=== PATIENT | male | born 1960 | race Caucasian/White ===

== ENCOUNTER 2024-07-20 07:12 | Inpatient (IN) | payer MEDICAID, SELFPAY ==
[2024-07-20] VITALS (10 sets, daily range): BP systolic 91–120; BP diastolic 62–87; PULSE 90–117; RESP 13–21; TEMP 36.4–37; O2SAT 95–99; BMI 19.8; BMI 17.6
--- NOTE | 2024-07-20 07:30 | CT_ITS ---
FINAL REPORT TECHNIQUE: After the administration of oral and intravenous contrast, axial images were obtained through the abdomen and pelvis by computed tomography. The study was performed with techniques to keep radiation dose as low as reasonably achievable, (ALARA). Individual dose reduction techniques using automated exposure control or adjustment of mA and/or kV according to the patient's size were employed. CLINICAL HISTORY: tunneling rectal wound FINDINGS: Abdomen: There is a low-attenuation lesion in the left lower the liver measuring 1.5 cm in diameter. This is highly concerning for metastasis. A 3.0 cm lesion in the spleen seen on image 38 of series 4 is also concerning for metastasis. A low-attenuation in the mid body of the pancreas is indeterminate and measures 1.2 cm. The adrenal glands and kidneys are unremarkable. There are multiple abnormally enlarged upper abdominal lymph nodes measuring up to 4 cm in craniocaudal dimension. These are along the right side of the upper abdominal aorta and are concerning for metastatic adenopathy. Pelvis: There is a mass in the inferior rectum and anal region measuring up to 4.4 x 3.5 cm in AP and transverse dimension. This mass appears to extend to the anal verge. The appendix is not identified. The urinary bladder is unremarkable. Iliac lymph nodes measure up to 1.7 cm and are concerning for metastatic adenopathy. A large destructive mass is seen within the left iliac wing measuring 6.0 x 4.6 cm. This is highly concerning for osseous metastasis. IMPRESSION: 1. Masses in the liver and spleen are highly concerning for metastases. 2. Extensive upper abdominal and iliac adenopathy concerning for metastatic adenopathy. 3. Large osseous lesion in the left iliac wing concerning for osseous metastasis. 4. Unusual mass in the inferior rectum extending to the anal verge. A primary neoplasm cannot be excluded. 5. PET/CT is recommended for further evaluation. Reviewed, Interpreted and Dictated by Fer Rios MD Transcribed by Tamera Lee Authenticated and [facility]
--- NOTE | 2024-07-20 07:30 | CT_ITS ---
FINAL REPORT TECHNIQUE: The patient was injected with IV contrast. Axial images were obtained through the chest in a PE protocol. 3-D reconstruction images were also performed. Individualized dose reduction techniques using automated exposure control or adjustment of the MA and/or KV according to patient's size were employed. CLINICAL HISTORY: cough, tachy FINDINGS: Mediastinal vasculature is adequately opacified. No pulmonary artery filling defects are identified to suggest PE. There is no aortic dissection. There is extensive mediastinal adenopathy. A superior right paratracheal node measures up to 2.2 cm. An inferior right paratracheal node measures up to 3.2 cm. There is confluent subcarinal and right hilar adenopathy. This confluent mass measures 7.5 x 3.5 cm in transverse and AP dimension. This mass is partially surrounded by the bronchus intermedius. There is a dominant mass in the right lower lobe measuring 5.0 x 5.0 cm in maximum AP and transverse dimension. There is a multitude of small noncalcified nodules throughout both lungs which is highly concerning for metastasis. A destructive lesion in the right sixth rib measures 2.3 cm in greatest dimension and is probably related to metastasis. Destructive lesions in the left lateral seventh, eighth, and ninth ribs may be related to traumatic or pathologic fractures. IMPRESSION: No pulmonary embolus or dissection. Extensive mediastinal adenopathy with a dominant mass in the superior segment of the right lower lobe of the lung. There is a multitude of bilateral pulmonary nodules as well as destructive rib lesions. Findings are highly concerning for bronchogenic carcinoma. Small cell lung cancer is favored. PET/CT and tissue sampling are recommended. Reviewed, Interpreted and Dictated by Fer Rios MD Transcribed by Tamera Lee Authenticated and [facility]
--- NOTE | 2024-07-20 07:32 | HMH.EDGENADL ---
Discharge Plan Disposition Chief Complaint: Wound/Laceration Prescriptions Prescriptions: No Action No Known Home Medications Referrals Follow up/Referrals: Provider,Referral, MD [Referring] - See instructions Clinical Impressions Clinical Impression: Metastatic disease, Wound with tunneling, Creatinine elevation, Elevated troponin Print Language Print Language: Panamanian Discharge ED Provider: Ryan Riley General Adult HPI General Chief complaint: Wound/Laceration Stated complaint: Back Pain Time Seen by Provider: 07/20/24 07:17 Mode of Arrival: EMS Source of Information: EMS Description of Symptoms (Recalled from ER Triage Doc. by RN): Per EMS patient lives by himself and is unable to take care of himself. Patient states he has no complaints but that the EMS crew has been to his house multiple times for well checks and this time they brought him to the hospital. Patient with multiple bleeding bed sores on his buttocks. History of Present Illness HPI narrative: Patient is a 64-year-old male with no reported chronic comorbidities, daily smoker who presents emergency department for evaluation of back pain. Patient called 911 for left paraspinal back pain that has been going on for about a week, there is been associated cough that is worse than his baseline. He has had acute functional decline. History per EMS house is dilapidated and the worst living conditions they have seen a long time . Patient has been unable to get out of his chair for the last 24 hours although normally he has a ambulatory baseline. Allergic to penicillins but does not know what happens. He also has multiple bleeding sores on his bottom. No other acute complaints at this time. Please note that above description of symptoms, in this electronic medical record under categorization of recalled from ER triage doctor by RN are reflective of an initial nursing assessment, however, is not reflective of my full history and physical exam that was personally taken and clarified. Consequentially, this preceding description of symptoms, which may include the patient's categorized chief complaint in the EMR, do not reflect my personal clinical impression, and the ultimate description of history of present illness and patient stated complaints should be deferred to this section of the note. Unless stated otherwise or congruent with this section of the note, additional signs, symptoms, or incongruence should be interpreted as inaccurate with my clinical impression. Related Data Home Medications ?Medication ?Instructions ?Recorded ?Confirmed No Known Home Medications 07/20/24 07/20/24 Allergies Allergy/AdvReac Type Severity Reaction Status Date / Time Penicillins Allergy Unknown Verified 07/20/24 07:26 allergy reaction [facility] Disclaimer: The information contained in this section may have been updated after the patient was seen, as this information can be updated by other users. Social History Smoking Status: Current every day smoker alcohol intake: former current occupational status: other Travel in the last 8 weeks: None ROS Obtained: Yes Systems reviewed as appropriate & no additional complaints except as documented Physical Exam General General appearance: alert, in no apparent distress and cachectic Head Head exam: atraumatic and normocephalic Eye Eye exam: Present PERRL and EOMI ENT ENT exam: Present mucous membranes moist Neck Neck exam: Present normal inspection Chest Chest inspection: Present normal inspection and symmetric chest wall rise Respiratory Respiratory exam: Present normal lung sounds bilaterally; Absent respiratory distress Cardiovascular Cardiovascular exam: Present regular rate and normal rhythm Abdominal Exam Abdominal exam: Present soft; Absent tenderness exam: Present other (Russian Language Professor present, deep tunneling wound into the rectum that is oozing blood.) Extremities Exam Extremities exam: Present normal inspection Back Exam Back exam: Present tenderness (Left paraspinal) Neurological Exam Neurological exam: Present alert, oriented X3 and CN II-XII intact Psychiatric Psychiatric exam: Present normal affect Skin Skin exam: Present warm and dry Medical Decision Making Medical Records Screening: Per USPSTF and CDC recommendations, given the prevalence of disease in our region, it is our hospital?s policy to screen for HIV and viral Hepatitis for all patients aged 18 and over and those with ongoing risk factors. Michele Inquiry Pt receiving controlled substance: No Vital Signs: 07/20/24 07:20 07/20/24 07:30 07/20/24 08:21 Temperature 98.4 F Temperature Source Oral Pulse Rate 116 H Pulse Rate [Radial] 117 H Respiratory Rate 18 21 Blood Pressure 101/71 L 120/87 Blood Pressure [Right Arm] 96/72 L Blood Pressure Mean 76 98 Blood Pressure Mean [Right Arm] 80 Blood Pressure Source [Right Arm] Automatic Cuff Blood Pressure Position [Right Arm] Sitting 02 Sat by Pulse Oximetry 99 97 Oxygen Delivery Method Room Air 07/20/24 08:30 Temperature Temperature Source Pulse Rate Pulse Rate [Radial] Respiratory Rate 21 Blood Pressure 116/80 Blood Pressure [Right Arm] Blood Pressure Mean 92 Blood Pressure Mean [Right Arm] Blood Pressure Source [Right Arm] Blood Pressure Position [Right Arm] 02 Sat by Pulse Oximetry Oxygen Delivery Method Lab Data Lab Results 07/20/24 07:38: WBC 15.1 H, RBC 5.10, Hgb 12.1 L, Hct 36.1 L, MCV 70.8 L, MCH 23.7 L, MCHC 33.5, RDW 20.3 H, Plt Count 290, MPV 9.7, Neut % (Auto) 88.4 H, Lymph % (Auto) 5.9 L, [place] % (Auto) 3.8, Eos % (Auto) 0.1, Baso % (Auto) 0.3, Neut # (Auto) 13.4 H, Lymph # (Auto) 0.9, [place] # (Auto) 0.6, Eos # (Auto) 0.0, Baso # (Auto) 0.1, Total Counted 100, Neutrophils % (Manual) 89 H, Lymphocytes % (Manual) 9 L, Monocytes % (Manual) 2, Platelet Estimate Normal, Hypochromasia 1+, Microcytosis 2+, Target Cells 1+, VBG pH 7.46 H, VBG pCO2 28.5 L, VBG pO2 84.1 H, VBG HCO3 19.9 L, VBG Total CO2 20.8 L, VBG O2 Saturation 96.1 H, VBG Base Excess -3.9 L, VBG Lactic Acid 1.5, Sodium 134 L, Potassium 3.2 L, Chloride 103, Carbon Dioxide 18 L, Anion Gap 16.2 H, BUN 65 H, Creatinine 2.60 H, Estimated Creat Clear 28, Estimated GFR 25 L, Est GFR ( Amer) 30 L, Glucose 122 H, Calcium 10.0, Total Bilirubin 1.1, AST 30, ALT 20, Alkaline Phosphatase 105, Troponin I 0.05 H, Total Protein 7.7, Albumin 3.6, Globulin 4.1 H, Albumin/Globulin Ratio 0.9 L 07/20/24 08:30: SARS-CoV-2 (PCR) Not detected, Influenza A Untype (PCR) Not detected, Influenza Type B (PCR) Not detected 07/20/24 11:04: Magnesium 1.6, Troponin I 0.05 H 07/20/24 07:38 07/20/24 07:38 Orders (Tests/Meds): ED MEDICATIONS Generic Name Dose Route Start Last Admin Trade Name Freq PRN Reason Stop Dose Admin Potassium Chloride/Water 100 mls @ 50 mls/hr 07/20/24 10:47 07/20/24 12:04 Potassium Chloride 20meq/100ml Ivpb IV 07/20/24 14:46 50 mls/hr Q2H CEM Administration Discontinued Medications Generic Name Dose Route Start Last Admin Trade Name Mckenna PRN Reason Stop Dose Admin Acetaminophen 1,000 mg 07/20/24 08:26 07/20/24 08:55 Acetaminophen 1,000mg/100ml Vial IV 07/20/24 08:27 1,000 mg ONCE ONE Administration Cefepime HCl 2 gm/ Sodium 100 mls @ 200 mls/hr 07/20/24 07:32 07/20/24 09:42 Chloride IV 07/20/24 08:01 200 mls/hr ONCE ONE Administration Metronidazole 500 mg in 100 mls @ 100 mls/hr 07/20/24 07:30 07/20/24 09:30 Flagyl 500mg/100ml Ivpb IV 07/20/24 08:29 100 mls/hr ONCE ONE Administration Lactated Ringer's 2,400 mls @ 1,200 mls/hr 07/20/24 07:37 07/20/24 07:50 Lactated Ringer's 1000 Ml Bag 30 ml/kg infuse over 2 hr (2400 ml) 07/20/24 09:36 1,200 mls/hr IV Administration .Q2H ONE Vancomycin/PEG/NADA/Lysine/Water 1.25 gm in 250 mls @ 125 mls/hr 07/20/24 10:00 07/20/24 09:51 Vancomycin 1.25gm/250ml (Peg) Premix IV 07/20/24 11:59 125 mls/hr ONCE ONE Administration Iopamidol 70 ml 07/20/24 09:37 07/20/24 09:39 Iopamidol-370 (76%);100ml Bottle IV 07/20/24 09:38 70 ml ONCE ONE Administration Miscellaneous 1 each 07/20/24 09:45 07/20/24 10:02 Vancomycin Consult Request NOTAPPLIC 08/19/24 09:44 Not Given [facility]ULT [facility] Morphine Sulfate 4 mg 07/20/24 08:26 07/20/24 08:55 Morphine 4mg/Ml Syringe IV 07/20/24 08:27 4 mg ONCE ONE Administration Sodium Chloride 10 ml 07/20/24 09:37 07/20/24 09:39 Sodium Chloride 0.9% 10ml Syr (Rad Only) IV 07/20/24 09:38 10 ml ONCE ONE Administration Sodium Chloride 50 ml 07/20/24 09:37 07/20/24 09:39 0.9 % Sodium Chloride 50 Ml Vial IV 07/20/24 09:38 50 ml ONCE ONE Administration ORDERS Category Date Time Status CT abdomen pelvis w con Stat Cat Scan 07/20/24 07:[address] angio chest PE protocol Stat Cat Scan 07/20/24 07:30 Completed CBC w/Auto Diff [Complete Blood Count Auto Diff] Stat Lab 07/20/24 07:38 Completed CMP [Comprehensive Metabolic Panel] Stat Lab 07/20/24 07:38 Completed MG [Magnesium] Stat Lab 07/20/24 11:04 Completed Rapid PCR Covid and Flu A/B Stat Lab 07/20/24 08:30 Completed Trop I [Troponin I] Stat Lab 07/20/24 07:38 Completed Troponin I Q3H Lab 07/20/24 11:04 Completed Troponin I Q3H Lab 07/20/24 13:45 Ordered Blood Culture Stat Micro 07/20/24 07:30 Received VBG [Venous Blood Gas] Stat RT 07/20/24 07:38 Completed EKG Request [ECG Request] Stat Y 07/20/24 07:36 Ordered ECG Data Tracing #1: Independently inter by me rate is 108, rhythm is regular, sinus tachycardia with intermittent PVCs. QTc 399 Medical Decision Narrative: In summary patient is a 64-year-old male with past medical history described above presents emergency department for multiple complaints. Patient is hemodynamically stable upon arrival, tachycardic and cachectic. Patient has tenderness over his left paraspinal area however I am much more concerned for the tunneling wound going into his rectum. He does not know how long it has been there. He also has acute functional decline. Differential includes chronic wound, tunnel infection, among others. With the specter of his back pain it could be lumbar go, kidney mass, urinary tract infection, among others. No chest pain reported although he does have significant cough and tachycardia. Broad workup will be conducted with hematologic labs, EKG, CT PE protocol, CT abdomen and pelvis with IV contrast. Initial inventions include sepsis crystalloid bolus, cefepime and metronidazole given his unknown allergy to penicillins. Pain control will be attempted with morphine and Ofirmev. CT imaging informally interpreted by me, opacities in the lungs and abnormal imaging in the pelvis adjacent to his wounds. Formal read masses in the liver and spleen concerning for metastasis extensive intra-abdominal adenopathy and osseous lesion of the iliac wing on the left, unusual mass in the inferior rectum extending to the anal verge, no pulmonary embolism or dissection, extensive mediastinal adenopathy with dominant mass in the superior segment of the right lower lobe the lung bilateral pulmonary nodules and destructive liver lesions concerning for bronchogenic carcinoma. I suspect taking all of this in totality that patient's prognosis is exceptionally poor although I do not have any definitive knowledge of possible treatments or palliation. Extensive discussion was had over the patient's goals at bedside and he does not want to be transferred to higher level of care and does not want to have ongoing treatment however he does want to be comfortable. He is interested in hospice. I think that this is reasonable plan and in the patient's best interest. Specifically he also does not want to be resuscitated with CPR or have a breathing tube placed in, he understands the consequences of this and has capacity to make this decision. Case was discussed with hospital medicine regarding management they will admit the patient their service for continued evaluation at this time. Critical Care Critical Care Time Critical Care Time: Yes Attestation: On 07/20/24, the high probability of a clinically significant, sudden or life threatening deterioration of the following system(s) required my full and direct attention, intervention and personal management. The time I documented below is in addition to time spent performing reported procedures but includes the following listed in this critical care notation. Total Time Total Critical Care Time: 45
--- NOTE | 2024-07-20 07:36 | ECG_ITS ---
APPROVED REPORT Exam: Resting ECG HR:108 bpm ECG Measurements Heart Rate 108 AXES GA 161 P 78 QRSd 86 QRS 91 QT 336 T 71 QTc 399 Conclusion SINUS TACHYCARDIA WITH FREQUENT VENTRICULAR PREMATURE COMPLEXES BORDERLINE RIGHT AXIS DEVIATION [QRS AXIS > 90] ABNORMAL RHYTHM ECG Electronically signed by : DELIO MCKEON, 07/20/2024 13:30:14
[2024-07-20 07:46] LABS: Basophils # 0.1 K/mm3 (0-0.2); Basophils % 0.3 % (0.1-2.0); Eosinophils % 0.1 % (0.1-12.0); Hematocrit 36.1 % (42.0-52.0); Hemoglobin 12.1 g/dL (14.1-18.0); Lymphocytes # 0.9 K/mm3 (0.7-4.5); Lymphocytes % 5.9 % (10-50); Mean Corpuscular HGB Conc 33.5 g/dL (31.8-35.4); Mean Corpuscular Hemoglobin 23.7 pg (27.0-31.2); Mean Corpuscular Volume 70.8 fl (80-94); Mean Platelet Volume 9.7 fl (7.4-10.4); Monocytes # 0.6 K/mm3 (0.1-1.0); Monocytes % 3.8 % (1.7-9.3); Neutrophils # 13.4 K/mm3 (1.8-7.8); Neutrophils % 88.4 % (37.0-80.0); Platelet Count 290 K/mm3 (142-424); Red Cell Distribution Width 20.3 % (11.5-17.5); White Blood Count 15.1 K/mm3 (4.8-10.8)
[2024-07-20 07:48] LABS: Lactate Venous 1.5 mmol/L (0.4-2.0); MANUAL DIFFERENTIAL MANUAL DIFFERENTIAL (MANUAL DIFF); VBG Base Excess -3.9 mmol/L (-2.4-2.3); VBG HCO3 19.9 mmol/L (23-30); VBG Oxygen Saturation 96.1 % (50-70); VBG PCO2 28.5 mmol/L (35-51); VBG PH 7.46 mmol/L (7.31-7.41); VBG PO2 84.1 mmol/L (28-40); VBG Total CO2 20.8 mmol/L (23-27)
[2024-07-20] MEDS: LACTATED RINGERS 1000ML 2,400 ML 1200 ML IV (07:50)
[2024-07-20 08:21] LABS: Hypochromasia 1+; Lymphocytes % 9 % (10-50); Monocytes % 2 % (2-9); Neutrophils % 89 % (42-76); Platelet Estimate Normal; Target Cells 1+; Total Cells Counted 100
[2024-07-20 08:22] LABS: Microcytosis 2+
--- NOTE | 2024-07-20 08:27 | PC.NURSE ---
EKG was delayed due to having to clean up the pt.
[2024-07-20 08:36] LABS: Coronavirus 19, PCR Not Detected (NotDetected); Influenza A, PCR Not Detected (NotDetected); Influenza B, PCR Not Detected (NotDetected)
[2024-07-20] MEDS: MORPHINE 4MG/ML SYRINGE 4 MG IV (08:55)
[2024-07-20] MEDS: ACETAMINOPHEN 1,000MG/100ML VIAL 1000 MG IV (08:55)
--- NOTE | 2024-07-20 09:11 | PC.NURSE ---
I notified lab that the pt is ready for his scans.
--- NOTE | 2024-07-20 09:11 | PC.NURSE ---
pt was an extremely hard stick. multiple nurses attempted to acquire blood work for the second set of blood cultures.
--- NOTE | 2024-07-20 09:13 | PC.WOUNDNOTE ---
pt taken to CT
--- NOTE | 2024-07-20 09:29 | PC.NURSE ---
patient back in room at this time.
[2024-07-20] MEDS: METRONIDAZ/SOD CHL 500 MG/100 ML PIGGYBACK 100 MG IV ×2 (09:30→19:00)
--- NOTE | 2024-07-20 09:31 | PC.NURSE ---
I rounded on the pt. no new complaints at this time. no needs voiced. call huddleston in reach.
[2024-07-20] MEDS: IOPAMIDOL-370 (76%);100ML BOTTLE 70 ML IV (09:39)
[2024-07-20] MEDS: SODIUM CHLORIDE 0.9% 10ML SYR (RAD ONLY) 10 ML IV (09:39)
[2024-07-20] MEDS: 0.9 % SODIUM CHLORIDE 50 ML VIAL IV (09:39)
[2024-07-20] MEDS: CEFEPIME HCL 2 GM in 0.9 % SODIUM CHLORIDE 100 ML IV (09:42)
[2024-07-20] MEDS: VANCOMYCIN/WATER FOR INJ (PEG) 1.25 GM/250 ML PIGGYBACK IV (09:51)
--- NOTE | 2024-07-20 10:19 | PC.NURSE ---
Called lab to check on the CMP/Lipase results that were collected at 0738, S/w Otto and he stated the analyzer didn't pick it up and they are re-running it. Give it [address] Riley notified of this delay.
[2024-07-20 10:27] LABS: Alanine Aminotransferase 20 U/L (12-78); Albumin Level 3.6 g/dl (3.5-5.0); Albumin/Globulin Ratio 0.9 (1.1-1.8); Alkaline Phosphatase 105 U/L (38-126); Anion Gap 16.2 mEq/L (5-15); Aspartate Amino Transferase 30 U/L (17-59); Bilirubin,Total 1.1 mg/dl (0.2-1.3); Blood Urea Nitrogen 65 mg/dl (9-20); Carbon Dioxide 18 mmol/L (22.0-30.0); Chloride 103 mmol/L (98-107); Creatinine Clearance Estimated 28 mL/min (50-200); Estimated Glomerular Filt Rate 25 ml/min (>60); GFR (African American) 30 ML/MIN (>60); Globulin 4.1 g/dL (1.3-3.2); Glucose 122 mg/dl (74-100); Potassium 3.2 mmoL/L (3.5-5.1); Sodium 134 mmol/L (136-145); Total Protein,Serum 7.7 g/dl (6.3-8.2)
[2024-07-20 10:39] LABS: Troponin I 0.05 ng/ml (0.00-0.034)
[2024-07-20] MEDS: KCl 20mEq/100ml 100 ML 50 MEQ IV ×2 (10:53→12:04)
--- NOTE | 2024-07-20 11:14 | PC.NURSE ---
[facility] CONTACTED FOR TRANSFER
--- NOTE | 2024-07-20 11:15 | PC.NURSE ---
rounded on patient, he requested for tv to be on. no other concerns at this time call light in reach
[2024-07-20 11:18] LABS: Magnesium 1.6 mg/dl (1.6-2.3)
--- NOTE | 2024-07-20 11:19 | PC.NURSE ---
Dr Riley at bedside discussing POC and options. Pt would like to choose to styay here and look into hospice. Let [facility] know we no longer need to transfer.
[2024-07-20 11:33] LABS: Troponin I 0.05 ng/ml (0.00-0.034)
--- NOTE | 2024-07-20 11:43 | PC.NURSE ---
KNOCKUP WORKER NOTIFIED OF ADMISSION
--- NOTE | 2024-07-20 12:50 | PC.NURSE ---
SIENNA FROM CARE MANAGEMENT AT BEDSIDE
--- NOTE | 2024-07-20 12:56 | SW/DCPLANNER ---
Addendum entered by [facility] 07/23/24 11:13: [facility] is able to accept this patient today I[facility] level of care. I will update Shaunna w/ Hospice and patient will be admitted to their services once admitted to [facility]. Patient is agreeable w/ this discharge plan. Addendum entered by [facility] 07/23/24 08:45: I spoke w/ patient this AM regarding LTC. At this time [facility] and [facility] do not have a male bed available. [facility] is reviewing patient information. Patient is agreeable for me to fax information to other facilities but prefers to stay as close to [place] as possible. Patient information will be faxed to [facility], [facility] and [facility]. Patient has also requested that I contact his aunt (Jinny Mcrae) regarding hospital admission and ask that she call his hospital room. Addendum entered by [facility] 07/23/24 07:45: Updated patient information faxed to [facility]. Addendum entered by [facility] 07/20/24 15:50: Diana stated that patient is appropriate for Hospice services. I am waiting to hear back from [facility] regarding LTC. Addendum entered by [facility] 07/20/24 13:21: Diana w/ Hospice will be at bedside this afternoon to speak w/ patient. [facility] is reviewing patient information at this time. Original Note: I spoke w/ this patient regarding plans once medically stable for discharge. Patient is a new metastatic cancer diagnosis and expressed to ER that he is not interested in treatment at this time. Patient expressed to me that he is interested in LTC ([facility]) w/ Hospice services. Patient information will be faxed to [facility] and [facility] today. I will continue to follow up.
--- NOTE | 2024-07-20 14:17 | PC.WOUNDNOTE ---
Patient's lower back and bottom, tunneling wound with skin flap
--- NOTE | 2024-07-20 14:19 | PC.WOUNDNOTE ---
skin flap on bottom
[2024-07-20 14:32] LABS: Troponin I 0.06 ng/ml (0.00-0.034)
[2024-07-20 16:11] LABS: Chloride 102 mmol/L (98-107); Potassium 3.7 mmoL/L (3.5-5.1); Sodium 133 mmol/L (136-145)
[2024-07-20 16:14] LABS: Anion Gap 12.7 mEq/L (5-15); Blood Urea Nitrogen 56 mg/dl (9-20); Carbon Dioxide 22 mmol/L (22.0-30.0); Creatinine Clearance Estimated 32 mL/min (50-200); Estimated Glomerular Filt Rate 32 ml/min (>60); GFR (African American) 39 ML/MIN (>60); Glucose 96 mg/dl (74-100); Phosphorous 2.9 mg/dl (2.5-4.5)
[2024-07-20 16:24] LABS: Magnesium 1.8 mg/dl (1.6-2.3)
--- NOTE | 2024-07-20 17:04 | HMH.PTWOUND ---
Rehab Inpt Wound Evaluation Rehab IP Wound Evaluation Start: 07/20/24 13:52 Freq: ONCE Status: Active Protocol: Document 07/20/24 16:57 MOLLY (Rec: 07/20/24 17:04 PHORNE [id number]) Rehab PT Wound Assessment Subjective Subjective 64-year-old male with no reported chronic comorbidities , daily smoker who presents emergency department for evaluation of back pain. Patient called 911 for left paraspinal back pain that has been going on for about a week , there is been associated cough that is worse than his baseline. He has had acute functional decline. History per EMS house is dilapidated and the worst living conditions they have seen a long time . Patient has been unable to get out of his chair for the last 24 hours although normally he has a ambulatory baseline. Allergic to penicillins but does not know what happens. He also has multiple bleeding sores on his bottom. No other acute complaints at this time. He reports he lives alone and does not know how long he has had a wound on his L buttock. He reports significant pain with wound examination. Wound Sacrum Wound Type Pressure Ulcer Is This a Chronic Wound Yes Wound Staging Stage IV Query Text:Stage I - Unbroken, red skin, no blanching. Stage II - Skin broken, superficial skin loss involving epidermis alone or also dermis. Partial loss of skin layers. Stage III - Pressure area involves epidermis, dermis and subcutaneous tissue, full thickness skin loss. Stage IV - Pressure area involves epidermis, subcutaneous tissue, bone and other supportive tissue. Full thickness skin loss with extensive destruction of underlying tissue and structures. Wound Length (cm) 5.0 Wound Width (cm) 5.0 Wound Depth (cm) 2.0 Wound Bed Appearance Beefy Red,[place],Yellow Tunneling Position 3 o'clock Tunneling Depth (cm) 3.0 Wound Drainage Description Brown Drainage Amount Large Drainage Odor Slight Odor Wound Topical Solution/Irrigant Saline Irrigant Packing Type Alginate Primary Dressing Absorbant Pad Wound Debridement Result Patient Unable to Tolerate Dressing Change Patient Tolerance Tolerated Poorly Plan/Recommendation Comment Wound drainage appears to be feces-like and is suggestive of rectal or anal fistula. Unable to fully explore wound depth and tunneling as pt has significant pain with examination. Recommend packing the wound with calcium alginate or fiber dressing in order to absorb drainage and limit the need for numerous dressing changes throughout the day to maintain pt comfort as much as possible. Bedside sharp excisional debridement is not recommended at this time. Eval Complexity Eval Charge Codes 16740 - High Complexity PHYSICIAN CERTIFICATION: I certify the specified therapy services for Jack Curran are required, authorized, and reviewed every 30 days.
[2024-07-20] MEDS: 0.9 % SODIUM CHLORIDE 1000ML 1,000 ML 100 ML IV (17:15)
[2024-07-20] MEDS: MAGNESIUM SULFATE IN WATER 2 GM/50 ML PIGGYBACK IV ×2 (17:16→18:18)
[2024-07-20 17:24] LABS: Creatine Kinase 74 U/L (55-170)
--- NOTE | 2024-07-20 17:25 | EXP.HP ---
History of Present Illness *Admission Date: 07/20/24 *Reason for visit:: Weakness *History of present illness: Jack Curran is a 64-year-old male with a medical history significant for chronic smoking who presents with progressive weakness and debility, ambulatory take care of himself at home. Patient states his girlfriend about 2 months ago, and ever since then he has not been really taking care of himself. He states he has not eaten or drank much over the past few days. He denies chest pain, shortness of breath, abdominal pain, fever/chills. He called EMS to his home because he felt too weak. Workup in the ED significant for WBC 15.1, creatinine 2.6 (unknown baseline), troponin 0.05. Unfortunately, CTA chest and CT abdomen/pelvis showed diffuse metastatic cancer including to right lobe, ribs, spleen, liver, pelvis, today reviewed. ED provider had extensive conversation with patient regarding further evaluation and management of these findings with patient declined transfer to [facility] and rather wanted to pursue hospice care. He states he wants to live happily and comfortably for however long he has left to live. Case discussed with ED provider and decision was made to admit patient for progressive debility, metastatic cancer, and assistance in finding hospice placement. [facility] Disclaimer: The information contained in this section may have been updated after the patient was seen, as this information can be updated by other users. Medical History (Updated 07/20/24 @ 18:04 by Yobany Kidd MD) Metastatic disease No significant past medical history Family History (Updated 07/20/24 @ 14:06 by Kristi Powell RN) Other No significant family history Social History (Updated 07/20/24 @ 14:06 by Kristi Powell RN) Smoking Status: Current every day smoker alcohol intake: former current occupational status: other Travel in the last 8 weeks: None Contact w/someone who lives/traveled outside [place] past 30 days?: No Exposure to someone with infectious disease in past 14 days?: No Do you have a fever (greater than 100.4 F or 38 C)?: No Have you tested positive for COVID-19: No Exposed to someone with COVID-19 in past 14 days?: No Do you have a sore throat?: No Do you have a cough?: No Do you have any weakness?: No Are you experiencing any nausea/vomitting?: No Do you have any diarrhea?: No Are you experiencing any unusual bleeding?: No Do you have any muscle aches/pain?: No Do you have any abdominal pain?: No Are you experiencing loss of taste or smell?: No Other Medical History Have you received the Flu Vaccine for this season: No Have you received the Pneumonia Vaccine: No Meds Home Medications and Allergies Home Medications ?Medication ?Instructions ?Recorded ?Confirmed ?Type No Known Home Medications 07/20/24 07/20/24 History New Prescriptions to Start Prescriptions: Allergies Allergy/AdvReac Type Severity Reaction Status Date / Time Penicillins Allergy Unknown Verified 07/20/24 07:26 allergy reaction Exam Data for Last 24 hours Vital signs and Labs for Last 24 Hours: Temp Pulse Resp BP Pulse Ox O2 Del Method 98.6 F 90 13 100/76 L 98 Room Air 07/20/24 13:28 07/20/24 13:28 07/20/24 13:28 07/20/24 13:28 07/20/24 13:28 07/20/24 16:16 Laboratory Results - last 24 hr 07/20/24 07:38: WBC 15.1 H, RBC 5.10, Hgb 12.1 L, Hct 36.1 L, MCV 70.8 L, MCH 23.7 L, MCHC 33.5, RDW 20.3 H, Plt Count 290, MPV 9.7, Neut % (Auto) 88.4 H, Lymph % (Auto) 5.9 L, [place] % (Auto) 3.8, Eos % (Auto) 0.1, Baso % (Auto) 0.3, Neut # (Auto) 13.4 H, Lymph # (Auto) 0.9, [place] # (Auto) 0.6, Eos # (Auto) 0.0, Baso # (Auto) 0.1, Total Counted 100, Neutrophils % (Manual) 89 H, Lymphocytes % (Manual) 9 L, Monocytes % (Manual) 2, Platelet Estimate Normal, Hypochromasia 1+, Microcytosis 2+, Target Cells 1+, VBG pH 7.46 H, VBG pCO2 28.5 L, VBG pO2 84.1 H, VBG HCO3 19.9 L, VBG Total CO2 20.8 L, VBG O2 Saturation 96.1 H, VBG Base Excess -3.9 L, VBG Lactic Acid 1.5, Sodium 134 L, Potassium 3.2 L, Chloride 103, Carbon Dioxide 18 L, Anion Gap 16.2 H, BUN 65 H, Creatinine 2.60 H, Estimated Creat Clear 28, Estimated GFR 25 L, Est GFR ( Amer) 30 L, Glucose 122 H, Calcium 10.0, Total Bilirubin 1.1, AST 30, ALT 20, Alkaline Phosphatase 105, Troponin I 0.05 H, Total Protein 7.7, Albumin 3.6, Globulin 4.1 H, Albumin/Globulin Ratio 0.9 L 07/20/24 08:30: SARS-CoV-2 (PCR) Not detected, Influenza A Untype (PCR) Not detected, Influenza Type B (PCR) Not detected 07/20/24 11:04: Magnesium 1.6, Troponin I 0.05 H 07/20/24 14:02: Troponin I 0.06 H 07/20/24 15:45: Sodium 133 L, Potassium 3.7, Chloride 102, Carbon Dioxide 22, Anion Gap 12.7, BUN 56 H, Creatinine 2.10 H, Estimated Creat Clear 32, Estimated GFR 32 L, Est GFR ( Amer) 39 L D, Glucose 96 D, Calcium 9.0, Phosphorus 2.9, Magnesium 1.8 D, TSH 3.00 I & O for Last 24 hours: Intake & Output 07/17/24 07/18/24 07/19/24 07/20/24 23:59 23:59 23:59 23:59 Weight 64.155 kg Constitutional Constitutional: no acute distress and cachectic *Routine HEENT Exam Head: Present normocephalic Eye: Present EOMI and PERRL ENT: Present mucous membranes moist *Routine Neck Exam Neck: Present supple; Absent lymphadenopathy *Routine Respiratory Exam Respiratory: Present CTA bilaterally *Routine Cardiovascular Exam Cardiovascular: Present RRR *Routine Abdominal Exam Abdominal: Present soft and normoactive bowel sounds; Absent tenderness *Routine Rectal Exam Rectal:: deferred *Routine Genitalia Exam Genitalia:: deferred *Routine Extremities Exam Extremities: Absent cyanosis, clubbing or edema *Routine Skin Exam Skin: Present warm; Absent rash Comments: Sacral ulcer with small open flap in his left medial buttock. *Routine Neurological Exam Neurological: Present alert and oriented X3 Assessment and Plan *Assessment and plan (1) Elevated troponin: Status: Acute Category: Medical Code(s): R79.89 - Other specified abnormal findings of blood chemistry (2) Metastatic disease: Status: Acute Category: Medical Code(s): C79.9 - Secondary malignant neoplasm of unspecified site Plan Jack Curran is a 64-year-old male with a medical history significant for chronic smoking who presents with progressive weakness and debility, ambulatory take care of himself at home. Patient states his girlfriend about 2 months ago, and ever since then he has not been really taking care of himself. He states he has not eaten or drank much over the past few days. He denies chest pain, shortness of breath, abdominal pain, fever/chills. He called EMS to his home because he felt too weak. Workup in the ED significant for WBC 15.1, creatinine 2.6 (unknown baseline), troponin 0.05. Unfortunately, CTA chest and CT abdomen/pelvis showed diffuse metastatic cancer including to right lobe, ribs, spleen, liver, pelvis, today reviewed. ED provider had extensive conversation with patient regarding further evaluation and management of these findings with patient declined transfer to [facility] and rather wanted to pursue hospice care. He states he wants to live happily and comfortably for however long he has left to live. Case discussed with ED provider and decision was made to admit patient for progressive debility, metastatic cancer, and assistance in finding hospice placement. #Comfort care #Diffuse metastatic cancer #Progressive debility #Productive cough ? Unfortunately, patient has diffuse metastatic cancer as above with unknown primary at this time. Patient is a longstanding current smoker. ? Patient does not want further evaluation and management, wants to pursue hospice. Patient is very pleasant. ? Case management assisting with hospice placement. ? Tylenol, [place] as needed for pain control. ? Started Trelegy 100 inhaler. ? Follow-up TSH, B12, folate. #Sacral ulcer ? There is an open small flap in his left medial buttock. ? Zosyn day 1. ? No plan for general surgery consultation as patient wants to pursue hospice. #JOSE ? Initial creatinine 2.6 unknown baseline. Patient making urine. ? Improved to 2.1 with IV fluid resuscitation. ? Follow-up CK. #Elevated troponins #Suspected NSTEMI type II ? Troponins peaked at 0.06, EKG without acute ischemic changes. Does show PVCs ? Patient does not want further workup, we will medically manage. ? Aspirin 81 mg, atorvastatin 40 mg, metoprolol succinate 25 mg. #Current smoker ? Does not want nicotine patch. DNR/DNI Lovenox 40 mg
[2024-07-20 17:41] LABS: Folate 3.16 ng/mL
[2024-07-20 17:51] LABS: Vitamin B12 625 pg/mL (239-931)
[2024-07-20] MEDS: CEFEPIME HCL 1 GM in 0.9 % SODIUM CHLORIDE 50 ML IV (18:35)
[2024-07-21] MEDS: 0.9 % SODIUM CHLORIDE 1000ML 1,000 ML 100 ML IV (03:03)
[2024-07-21] MEDS: METRONIDAZ/SOD CHL 500 MG/100 ML PIGGYBACK 100 MG IV ×3 (03:03→17:52)
--- NOTE | 2024-07-21 03:50 | PC.NURSE ---
V/s, ox4. Pallative/hospice pt. Pt refused PO meds, but allowed for IV fluids/medication. No acute events to report. Plan of care ongoing.
[2024-07-21 04:00] VITALS: BMI 17.9
[2024-07-21] MEDS: CEFEPIME HCL 1 GM in 0.9 % SODIUM CHLORIDE 50 ML IV (06:20)
[2024-07-21 07:16] LABS: Eosinophils # 0.1 K/mm3 (0.0-0.4); Hematocrit 30.9 % (42.0-52.0); Lymphocytes # 0.8 K/mm3 (0.7-4.5); Lymphocytes % 7.2 % (10-50); Mean Corpuscular HGB Conc 32.4 g/dL (31.8-35.4); Mean Corpuscular Hemoglobin 23.5 pg (27.0-31.2); Mean Corpuscular Volume 72.5 fl (80-94); Monocytes # 0.5 K/mm3 (0.1-1.0); Red Blood Count 4.26 M/mm3 (4.60-6.20)
[2024-07-21 07:26] VITALS: BP 106/64; PULSE 97; RESP 18; TEMP 36.6; O2SAT 98
[2024-07-21 07:27] LABS: Alanine Aminotransferase 15 U/L (12-78); Albumin Level 2.7 g/dl (3.5-5.0); Albumin/Globulin Ratio 0.8 (1.1-1.8); Alkaline Phosphatase 89 U/L (38-126); Anion Gap 11.4 mEq/L (5-15); Aspartate Amino Transferase 31 U/L (17-59); Bilirubin,Total 0.6 mg/dl (0.2-1.3); Blood Urea Nitrogen 51 mg/dl (9-20); Carbon Dioxide 19 mmol/L (22.0-30.0); Chloride 108 mmol/L (98-107); Chol/HDL Ratio 2.5 (1-3.5); Cholesterol 67 mg/dl (140-200); Creatinine Clearance Estimated 38 mL/min (50-200); Estimated Glomerular Filt Rate 38 ml/min (>60); GFR (African American) 46 ML/MIN (>60); Globulin 3.3 g/dL (1.3-3.2); Glucose 75 mg/dl (74-100); HDL Cholesterol 27 mg/dl (40-60); Magnesium 2.8 mg/dl (1.6-2.3); Potassium 3.4 mmoL/L (3.5-5.1); Sodium 135 mmol/L (136-145); Triglycerides 68 mg/dl (30-150); VLDL Cholesterol 14 mg/dL (0-40)
[2024-07-21 07:28] LABS: Basophils % 0.4 % (0.1-2.0); Eosinophils % 0.9 % (0.1-12.0); Mean Platelet Volume 10.2 fl (7.4-10.4); Monocytes % 4.6 % (1.7-9.3); Neutrophils # 8.9 K/mm3 (1.8-7.8); Platelet Count 233 K/mm3 (142-424); Red Cell Distribution Width 20.7 % (11.5-17.5); White Blood Count 10.4 K/mm3 (4.8-10.8)
[2024-07-21 07:47] LABS: Direct LDL Cholesterol < 30.00 mg/dL (100-129)
[2024-07-21] MEDS: SILVER SULFADIAZINE TP (14:19)
[2024-07-21 16:00] VITALS: BP 103/74; PULSE 107; RESP 16; TEMP 37.1
--- NOTE | 2024-07-21 17:16 | PC.NURSE ---
PT IS RESTING IN BED. ALERT AND ORIENTED X4. PT HAS REFUSED MEALS T/O THE SHIFT. PT WAS AGREEABLE TO EATING 1/2 OF A CHICKEN STRIP FOR DINNER. TURNED AND REPOSITIONED FREQUENTLY IN BED. MULTIPLE WATERY STOOLS T/O THE SHIFT. MULTIPLE OPEN AREAS NOTED TO BUTTOCKS. ATTEMPTED TO PACK AREA WITH TUNNELING HOWEVER PACKING QUICKLY BECAME SOILED DUE TO MULTIPLE BOWEL MOVEMENTS AND PT REQUESTED FOR STAFF TO LEAVE AREA ALONE. PT HAS STATED MULTIPLE TIMES THIS SHIFT I JUST WANT TO FALL ASLEEP AND NOT WAKE UP . PT YELLS OUT IN PAIN WHEN STAFF HAS TO PROVIDE ANY TYPE OF CARE. PT HAS REFUSED ALL PO MEDS THIS SHIFT INCLUDING PO PAIN MEDICATION. NOTIFIED.WILL CONTINUE TO MONITOR.
--- NOTE | 2024-07-21 19:33 | EXP.EVENT.NO ---
problem: Patient had end stage of life awaiting hospice consult. Patient's IVs came out patient refused to have any other IVs started. Also has a terrible buttocks ulcer deep draining with redness corrugated skin to the buttocks. exam: Patient is awake and alert and has let me know in no uncertain terms he is tired of being messed with does not want IVs, did not want any more lab work done. Plan: Per the patient will not try any other methods to try to heal the skin on the buttocks from the deep wound. Did not want any type of pure wick or drainage started he is presently wearing diapers. He let me know that the main thing he wanted to do was sleep. He has expressed to the nurses that he is ready to .. He gives me complete understanding that he is of sound mind and body he knows what is going on and that the condition he has is not curable. At this time we will start Roxanol 5 mg every 2 hours and adjust as needed., Changed Zofran to sublingual. Stopped all lab draws will not attempt to do anything as far as starting an IV again. Patient knows he will not be receiving antibiotics changed to p.o. antibiotics if he becomes agreeable in the morning.
[2024-07-21 19:55] VITALS: BP 97/64; PULSE 105; RESP 16; TEMP 36.6; O2SAT 95
--- NOTE | 2024-07-21 22:14 | P.PN_ITS ---
Subjective *Date: 07/22/24 *Time: 16:36 Interval history: Patient more awake today, eating and taking some medications. No acute concerns. Exam Data for Last 24 hours Vital signs and Labs for Last 24 Hours: Temp Pulse Resp BP Pulse Ox O2 Del Method 97.8 F 105 H 16 97/64 L 95 Room Air 07/21/24 19:55 07/21/24 19:55 07/21/24 19:55 07/21/24 19:55 07/21/24 19:55 07/21/24 21:00 Laboratory Results - last 24 hr 07/21/24 06:17: WBC 10.4 D, RBC 4.26 L, Hgb 10.0 L D, Hct 30.9 L, MCV 72.5 L, MCH 23.5 L, MCHC 32.4, RDW 20.7 H, Plt Count 233, MPV 10.2, Neut % (Auto) 85.0 H , Lymph % (Auto) 7.2 L, [place] % (Auto) 4.6, Eos % (Auto) 0.9, Baso % (Auto) 0.4, Neut # (Auto) 8.9 H, Lymph # (Auto) 0.8, [place] # (Auto) 0.5, Eos # (Auto) 0.1, Baso # (Auto) 0.0, Sodium 135 L, Potassium 3.4 L, Chloride 108 H, Carbon Dioxide 19 L, Anion Gap 11.4, BUN 51 H, Creatinine 1.80 H, Estimated Creat Clear 38, Estimated GFR 38 L, Est GFR ( Amer) 46 L, Glucose 75 D, Calcium 9.0, Magnesium 2.8 H D, Total Bilirubin 0.6, AST 31, ALT 15, Alkaline Phosphatase 89, Total Protein 6.0 L, Albumin 2.7 L D, Globulin 3.3 H, Albumin/Globulin Ratio 0.8 L, Triglycerides 68, Cholesterol 67 L, LDL Cholesterol Direct < 30.00 L, VLDL Cholesterol 14, HDL Cholesterol 27 L, Cholesterol/HDL Ratio 2.5 I & O for Last 24 hours: Intake & Output 07/18/24 07/19/24 07/20/24 07/21/24 23:59 23:59 23:59 23:59 Intake Total 50 / 50 630 / 630 Output Total 200 / 200 350 / 350 Balance -150 / -150 280 / 280 Weight 64.155 kg 65.408 kg Microbiology Reports for the Last 24 Hours: Microbiology 07/20/24 09:12 Blood Blood Culture - Preliminary NO GROWTH AFTER 24 HOURS 07/20/24 07:38 Blood Blood Culture - Preliminary NO GROWTH AFTER 24 HOURS Constitutional Constitutional: no acute distress *Routine HEENT Exam Head: Present normocephalic Eye: Present EOMI and PERRL ENT: Present mucous membranes moist *Routine Neck Exam Neck: Present supple; Absent lymphadenopathy *Routine Respiratory Exam Respiratory: Present CTA bilaterally *Routine Cardiovascular Exam Cardiovascular: Present RRR *Routine Abdominal Exam Abdominal: Present soft and normoactive bowel sounds; Absent tenderness *Routine Rectal Exam Comments: Left buttock ulcer with flap. *Routine Extremities Exam Extremities: Absent cyanosis, clubbing or edema *Routine Skin Exam Skin: Present warm; Absent rash *Routine Neurological Exam Neurological: Present alert and oriented X3 Assessment and Plan *Assessment and plan (1) Elevated troponin: Status: Acute Category: Medical Code(s): R79.89 - Other specified abnormal findings of blood chemistry (2) Metastatic disease: Status: Acute Category: Medical Code(s): C79.9 - Secondary malignant neoplasm of unspecified site Plan Jack Curran is a 64-year-old male with a medical history significant for chronic smoking who presents with progressive weakness and debility, ambulatory take care of himself at home. Patient states his girlfriend about 2 months ago, and ever since then he has not been really taking care of himself. He states he has not eaten or drank much over the past few days. He denies chest pain, shortness of breath, abdominal pain, fever/chills. He called EMS to his home because he felt too weak. Workup in the ED significant for WBC 15.1, creatinine 2.6 (unknown baseline), troponin 0.05. Unfortunately, CTA chest and CT abdomen/pelvis showed diffuse metastatic cancer including to right lobe, ribs, spleen, liver, pelvis, today reviewed. ED provider had extensive conversation with patient regarding further evaluation and management of these findings with patient declined transfer to [facility] and rather wanted to pursue hospice care. He states he wants to live happily and comfortably for however long he has left to live. Case discussed with ED provider and decision was made to admit patient for progressive debility, metastatic cancer, and assistance in finding hospice placement. #Comfort care #Diffuse metastatic cancer #Progressive debility #Productive cough ? Unfortunately, patient has diffuse metastatic cancer as above with unknown primary at this time. Patient is a longstanding current smoker. ? Patient does not want further evaluation and management, wants to pursue hospice. Patient is very pleasant. ? Case management assisting with hospice placement. ? Tylenol, [place], Morphine for pain control. ? Continue Trelegy 100 inhaler. - Lab holiday, patient also has been intermittently refusing meds as he wanted to be left alone to sleep. #Sacral ulcer ? There is an open small flap in his left medial buttock. ? Switched to Clindamycin today as patient pulled out his IV. ? No plan for general surgery consultation as patient wants to pursue hospice. #JOSE ? Initial creatinine 2.6 unknown baseline. Patient making urine. ? Improved to 1.8 with IV fluid resuscitation. CK normal. #Elevated troponins #Suspected NSTEMI type II ? Troponins peaked at 0.06, EKG without acute ischemic changes. Does show PVCs ? Patient does not want further workup, we will medically manage. ? Aspirin 81 mg, atorvastatin 40 mg, metoprolol succinate 25 mg. #Current smoker ? Does not want nicotine patch. DNR/DNI Lovenox 40 mg
[2024-07-22 04:00] VITALS: BMI 17.9
--- NOTE | 2024-07-22 04:11 | PC.NURSE ---
Pt has refused all care, turning, medications of any sort, iv's, v/s, purewick, being cleaned up, and eating. Provider notified. Provider stated he talked to pt and stated the pt just wants to be kept warm and nothing else. pt is ox4. Pt stated he wants to go to sleep and never wake up. Pt stated if we could leave him alone that would be great.No acute events to report. Plan of care ongoing.
[2024-07-22 08:00] VITALS: BP 94/60; PULSE 102; RESP 15; TEMP 36.9; O2SAT 95
[2024-07-22] MEDS: SILVER SULFADIAZINE TP (08:53)
[2024-07-22] MEDS: MORPHINE 20MG/ML 1ML ORAL SOLUTION 5 MG PO ×2 (11:49→18:23)
--- NOTE | 2024-07-22 15:00 | EXP.PN ---
Subjective *Date: 07/21/24 *Time: 11:36 Interval history: Patient wants to rest today, refusing medications and lab draws. No acute concerns today. Exam Data for Last 24 hours Vital signs and Labs for Last 24 Hours: Temp Pulse Resp BP Pulse Ox O2 Del Method 98.5 F 102 H 15 94/60 L 95 Room Air 07/22/24 08:00 07/22/24 08:00 07/22/24 08:00 07/22/24 08:00 07/22/24 08:00 07/22/24 13:00 I & O for Last 24 hours: Intake & Output 07/19/24 07/20/24 07/21/24 07/22/24 23:59 23:59 23:59 23:59 Intake Total 50 / 50 630 / 630 240 / 240 Output Total 200 / 200 350 / 350 0 / 0 Balance -150 / -150 280 / 280 240 / 240 Weight 64.155 kg 65.408 kg 65.453 kg Microbiology Reports for the Last 24 Hours: Microbiology 07/20/24 09:12 Blood Blood Culture - Preliminary NO GROWTH AFTER 48 HOURS 07/20/24 07:38 Blood Blood Culture - Preliminary NO GROWTH AFTER 48 HOURS Constitutional Constitutional: no acute distress *Routine HEENT Exam Head: Present normocephalic Eye: Present EOMI and PERRL ENT: Present mucous membranes moist *Routine Neck Exam Neck: Present supple; Absent lymphadenopathy *Routine Respiratory Exam Respiratory: Present CTA bilaterally *Routine Cardiovascular Exam Cardiovascular: Present RRR *Routine Abdominal Exam Abdominal: Present soft and normoactive bowel sounds; Absent tenderness *Routine Rectal Exam Comments: Left buttock ulcer with flap. *Routine Extremities Exam Extremities: Absent cyanosis, clubbing or edema *Routine Skin Exam Skin: Present warm; Absent rash *Routine Neurological Exam Neurological: Present alert and oriented X3 Assessment and Plan *Assessment and plan (1) Elevated troponin: Status: Acute Category: Medical Code(s): R79.89 - Other specified abnormal findings of blood chemistry (2) Metastatic disease: Status: Acute Category: Medical Code(s): C79.9 - Secondary malignant neoplasm of unspecified site Plan Jack Curran is a 64-year-old male with a medical history significant for chronic smoking who presents with progressive weakness and debility, ambulatory take care of himself at home. Patient states his girlfriend about 2 months ago, and ever since then he has not been really taking care of himself. He states he has not eaten or drank much over the past few days. He denies chest pain, shortness of breath, abdominal pain, fever/chills. He called EMS to his home because he felt too weak. Workup in the ED significant for WBC 15.1, creatinine 2.6 (unknown baseline), troponin 0.05. Unfortunately, CTA chest and CT abdomen/pelvis showed diffuse metastatic cancer including to right lobe, ribs, spleen, liver, pelvis, today reviewed. ED provider had extensive conversation with patient regarding further evaluation and management of these findings with patient declined transfer to [facility] and rather wanted to pursue hospice care. He states he wants to live happily and comfortably for however long he has left to live. Case discussed with ED provider and decision was made to admit patient for progressive debility, metastatic cancer, and assistance in finding hospice placement. #Comfort care #Diffuse metastatic cancer #Progressive debility #Productive cough ? Unfortunately, patient has diffuse metastatic cancer as above with unknown primary at this time. Patient is a longstanding current smoker. ? Patient does not want further evaluation and management, wants to pursue hospice. Patient is very pleasant. ? Case management assisting with hospice placement. ? Tylenol, [place] as needed for pain control. ? Started Trelegy 100 inhaler, but patient refused today as he wanted to sleep. ? Follow-up TSH, B12, folate. #Sacral ulcer ? There is an open small flap in his left medial buttock. ? Zosyn day 2. ? No plan for general surgery consultation as patient wants to pursue hospice. #JOSE ? Initial creatinine 2.6 unknown baseline. Patient making urine. ? Improved to 2.1 with IV fluid resuscitation. CK normal ? Patient refused morning labs today. #Elevated troponins #Suspected NSTEMI type II ? Troponins peaked at 0.06, EKG without acute ischemic changes. Does show PVCs ? Patient does not want further workup, we will medically manage. ? Aspirin 81 mg, atorvastatin 40 mg, metoprolol succinate 25 mg. But patient refusing meds today. #Current smoker ? Does not want nicotine patch. DNR/DNI Lovenox 40 mg
--- NOTE | 2024-07-22 18:33 | PC.NURSE ---
PT IS RESTING IN BED. ALERT AND ORIENTED X4. PT HAS BEEN EATING AND DRINKING BETTER THIS SHIFT. TURNED AND REPOSITIONED FREQUENTLY. 2 MODERATE WATERY BOWEL MOVEMENTS THIS SHIFT. MEDICATED PER MAR WITH ROXANOL FOR DISCOMFORT. OPEN AREAS TO BUTTOCKS WERE CLEANED AND SILVADENE CREAM WAS APPLIED TO THE REDNESS. LUNG SOUNDS HAVE SCATTERED RHONCHI. ABDOMEN SOFT/NON TENDER WITH HYPOACTIVE BOWEL SOUNDS. WILL CONTINUE TO MONITOR.
[2024-07-22 19:41] VITALS: BP 105/74; PULSE 101; RESP 18; TEMP 37.3; O2SAT 94
[2024-07-23] VITALS: BP 91/53; PULSE 99; RESP 16; TEMP 36.7; O2SAT 92
[2024-07-23 04:00] VITALS: BMI 17.5
--- NOTE | 2024-07-23 05:37 | PC.NURSE ---
Pt is ox4. Pt has refused most care. Pt is a pallative/hospice patient. No acute events to report. Plan of care ongoing.
[2024-07-23 08:00] VITALS: BP 104/73; PULSE 106; RESP 18; TEMP 36.6; O2SAT 94
[2024-07-23 08:58] VITALS: BMI 17.5
[2024-07-23] MEDS: METOPROLOL SUCCINATE XL 25MG TABLET 25 MG PO (09:20)
[2024-07-23] MEDS: CLINDAMYCIN 150MG CAPSULE 450 MG PO (09:21)
[2024-07-23] MEDS: SILVER SULFADIAZINE TP (09:21)
[2024-07-23] MEDS: ASPIRIN EC 81MG TABLET 81 MG PO (09:21)
[2024-07-23] MEDS: FLUTICASONE/UMECLIDIN/VILANTER 100/62.5/25MCG INHALER 1 PUFF IH (09:36)
--- NOTE | 2024-07-23 11:49 | P.DS_ITS ---
General Admission date:: 07/20/24 HPI HPI HPI: Jack Curran is a 64-year-old male with a medical history significant for chronic smoking who presents with progressive weakness and debility, ambulatory take care of himself at home. Patient states his girlfriend about 2 months ago, and ever since then he has not been really taking care of himself. He states he has not eaten or drank much over the past few days. He denies chest pain, shortness of breath, abdominal pain, fever/chills. He called EMS to his home because he felt too weak. Workup in the ED significant for WBC 15.1, creatinine 2.6 (unknown baseline), troponin 0.05. Unfortunately, CTA chest and CT abdomen/pelvis showed diffuse metastatic cancer including to right lobe, ribs, spleen, liver, pelvis, today reviewed. ED provider had extensive conversation with patient regarding further evaluation and management of these findings with patient declined transfer to [facility] and rather wanted to pursue hospice care. He states he wants to live happily and comfortably for however long he has left to live. Case discussed with ED provider and decision was made to admit patient for progressive debility, metastatic cancer, and assistance in finding hospice placement. Hospital Course Hospital Course Hospital Course: Jack Curran is a 64-year-old male with a medical history significant for chronic smoking who presents with progressive weakness and debility, ambulatory take care of himself at home. Patient states his girlfriend about 2 months ago, and ever since then he has not been really taking care of himself. He states he has not eaten or drank much over the past few days. He denies chest pain, shortness of breath, abdominal pain, fever/chills. He called EMS to his home because he felt too weak. Workup in the ED significant for WBC 15.1, creatinine 2.6 (unknown baseline), troponin 0.05. Unfortunately, CTA chest and CT abdomen/pelvis showed diffuse metastatic cancer including to right lobe, ribs, spleen, liver, pelvis, today reviewed. ED provider had extensive conversation with patient regarding further evaluation and management of these findings with patient declined transfer to [facility] and rather wanted to pursue hospice care. He states he wants to live happily and comfortably for however long he has left to live. Case discussed with ED provider and decision was made to admit patient for progressive debility, metastatic cancer, and assistance in finding hospice placement. #Hospice care #Diffuse metastatic cancer #Progressive debility #Productive cough ? Unfortunately, patient has diffuse metastatic cancer as above with unknown primary at this time as above. Patient is a longstanding current smoker. ? Patient does not want further evaluation and management, wants to pursue hospice. Patient is very pleasant. ? Case management assisting with hospice placement, [facility] graciously accepted the patient. ? Tylenol, Morphine for pain control. ? Continue Trelegy 100 inhaler. #Sacral ulcer ? There is an open small flap in his left medial buttock. ? Continue clindamycin for 4 more days. ? No plan for general surgery intervention as patient wants to pursue hospice. #JOSE ? Initial creatinine 2.6 unknown baseline. Patient making urine. ? Improved to 1.8 with IV and oral fluid resuscitation. CK normal. #Elevated troponins #Suspected NSTEMI type II ? Troponins peaked at 0.06, EKG without acute ischemic changes. Does show PVCs ? Patient does not want further workup, we will medically manage. ? Continue metoprolol succinate 25 mg daily. #Current smoker ? Does not want nicotine patch. Total time spent on discharge: 32 minutes on chart review, counseling, documentation, and direct care with patient. Exam Data for Last 24 hours Vital signs and Labs for Last 24 Hours: Temp Pulse Resp BP Pulse Ox O2 Del Method 97.9 F 106 H 18 104/73 L 94 L Room Air 07/23/24 08:00 07/23/24 08:00 07/23/24 08:00 07/23/24 08:00 07/23/24 08:00 07/23/24 09:00 I & O for Last 24 hours: Intake & Output 07/20/24 07/21/24 07/22/24 07/23/24 23:59 23:59 23:59 23:59 Intake Total 50 / 50 630 / 630 640 / 690 410 / 410 Output Total 200 / 200 350 / 350 0 / 0 0 / 0 Balance -150 / -150 280 / 280 640 / 690 410 / 410 Weight 64.155 kg 65.408 kg 65.453 kg 63.9 kg Microbiology Reports for the Last 24 Hours: Microbiology 07/20/24 09:12 Blood Blood Culture - Preliminary NO GROWTH AFTER 48 HOURS Constitutional Constitutional: no acute distress *Routine HEENT Exam Head: Present normocephalic Eye: Present EOMI and PERRL ENT: Present mucous membranes moist *Routine Neck Exam Neck: Present supple; Absent lymphadenopathy *Routine Respiratory Exam Respiratory: Present CTA bilaterally *Routine Cardiovascular Exam Cardiovascular: Present RRR *Routine Abdominal Exam Abdominal: Present soft and normoactive bowel sounds; Absent tenderness *Routine Rectal Exam Comments: Left buttock ulcer with flap. *Routine Extremities Exam Extremities: Absent cyanosis, clubbing or edema *Routine Skin Exam Skin: Present warm; Absent rash *Routine Neurological Exam Neurological: Present alert and oriented X3 Results Data Completed and Pending Labs on day of discharge: Preliminary micro results at discharge 07/20/24 09:12 Blood Culture - Preliminary Blood NO GROWTH AFTER 48 HOURS 07/20/24 07:38 Blood Culture - Preliminary Blood NO GROWTH AFTER 48 HOURS DS: Diagnosis Discharge Diagnosis (1) Elevated troponin: Status: Acute Code(s): R79.89 - Other specified abnormal findings of blood chemistry (2) Metastatic disease: Status: Acute Code(s): C79.9 - Secondary malignant neoplasm of unspecified site Meds Home Medications and Allergies Home Medications ?Medication ?Instructions ?Recorded ?Confirmed ?Type clindamycin HCl 150 mg capsule 450 mg (3 x 150 mg) PO TID 4 days 07/23/24 Rx #36 caps fluticasone fur. 100 mcg-umeclid 1 inh inhalation DAILY #60 ea 07/23/24 Rx 62.5 mcg-vilant 25 mcg inhalat.powder (Trelegy Ellipta) metoprolol succinate 25 mg 25 mg PO DAILY 30 days #30 tabs 07/23/24 Rx tablet,extended release 24 hr morphine concentrate 100 mg/5 mL 5 mg (0.25 mL) PO Q4-6H PRN Mild 07/23/24 Rx (20 mg/mL) oral solution To Moderate Pain (1-6) 3 days #3 mL silver sulfadiazine 1 % topical 1 applic topical DAILY 30 days 07/23/24 Rx cream (Silvadene) #200 grams New Prescriptions to Start Prescriptions: clindamycin HCl Yobany Kidd [id number] [Trelegy Ellipta] Yobany Kidd metoprolol succinate Yobany Kidd morphine concentrate Yobany Kidd silver sulfadiazine [Silvadene] Yobany Kidd Allergies Allergy/AdvReac Type Severity Reaction Status Date / Time Penicillins Allergy Unknown Verified 07/20/24 07:26 allergy reaction Discharge Plan Disposition Patient Disposition: er Intermediate Care Fac Condition: Fair Discharge Order Discharge Orders: Discharge Order (Routine); Ordered 07/23/24 Ordered By: Yobany Kidd Follow up Plan Prescriptions/Medication Reconciliation: New clindamycin HCl 150 mg Capsule 450 mg PO TID 4 Days Qty: 36 0RF Trelegy Ellipta 100-62.5-25 mcg Blister With Device 1 inh inhalation DAILY Qty: 60 0RF silver sulfadiazine [Silvadene] 1 % Cream 1 applic topical DAILY 30 Days Qty: 200 0RF morphine concentrate 100 mg/5 mL (20 mg/mL) Solution 5 mg PO Q4-6H PRN (Reason: Mild To Moderate Pain (1-6)) 3 Days Qty: 3 0RF metoprolol succinate 25 mg Tablet Extended Release 24 Hr 25 mg PO DAILY 30 Days Qty: 30 0RF Problem Reconciliation Problems Reviewed?: Yes Patient Discharge Instructions Patient Instructions: Palliative Care for Cancer Print Language: Kazakh Providers Primary Care Provider: Vy Palacio Admit Provider: Yobany Kidd Attending Provider: Yobany Kidd
--- NOTE | 2024-07-23 13:34 | PC.NURSE ---
ATTEMPTED TO ADMIN 1300 CLINDAMYCIN DOSE PRIOR TO DC BUT PT REFUSED.
== END 2024-07-23 13:33 | DRG 640 ==
LOC: ER 08:44 → 2ND 12:50
PROVIDERS: Admitting Provider Student in an Organized Health Care Education/Training Program; Emergency Provider Emergency Medicine; PCP Nurse Practitioner Family; Visit Provider Student in an Organized Health Care Education/Training Program
DX: R62.7 Adult failure to thrive (principal); L89.154 Pressure ulcer of sacral region, stage 4; C80.0 Disseminated malignant neoplasm, unspecified; N17.9 Acute kidney failure, unspecified; Z68.1 Body mass index [BMI] 19.9 or less, adult; Z59.19 Other inadequate housing; R00.0 Tachycardia, unspecified; R79.89 Other specified abnormal findings of blood chemistry; E88.A Wasting disease (syndrome) due to underlying condition; R05.8 Other specified cough; F17.210 Nicotine dependence, cigarettes, uncomplicated; Z88.0 Allergy status to penicillin; Z60.2 Problems related to living alone; Z74.1 Need for assistance with personal care; Z66 Do not resuscitate; Z91.198 Patient's noncompliance with other medical treatment and regimen for other reason; Z53.29 Procedure and treatment not carried out because of patient's decision for other reasons; Z51.5 Encounter for palliative care
CPT/HCPCS: 36415; 71275; 74177; 80048; 80053; 80061; 82550; 82607; 82746; 82803; 83735; 84100; 84443; 84484; 85007; 85025; 87040; 87636; 93005; 94640; 99291; J0131; J0692; J2270; J3372; J3475; J7030; J7120; Q9967